=== PATIENT | female | born 1960 | race Caucasian/White ===

== ENCOUNTER → 2016-07-03 | Outpatient (CLI) | payer OTHER ==
[~2016-07-03] MED LIST: BSP10T PO; CTLP20T PO; HYDR1TAB PO; LISI1TAB6 PO
--- OUTSIDE RECORDS SUMMARY | 2016-07-03 13:08 | XMS REPORT ---
Author Author ESVIN SAUER [facility] e[employer] Address Unknown Phone Unavailable Care Team Providers Care Patient Ombudsperson Name Role Phone ESVIN SAUER CP Unavailable Allergies No Known Allergies Problems Problem Type Condition ICD-9 Code Onset Dates Condition Status Problem Migraine, unspecified without mention of intractable migraine without mention of status migrainosus 346.90 Active Problem Other, multiple, and unspecified sites, insect bite, nonvenomous, without mention of infection 919.4 Active Problem Hypopotassemia 276.8 Active Problem Routine adult health maintenance V70.0 Active Problem Posttraumatic stress disorder 309.81 Active Problem Post traumatic stress disorder 309.81 Active Problem Unspecified otitis media 382.9 Active Problem Acute bronchitis 466.0 Active Problem 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 Problem Contact dermatitis and other eczema, due to unspecified cause 692.9 Active Problem Lumbago 724.2 Active Problem Acute upper respiratory infections of unspecified site 465.9 Active Problem Unspecified otalgia 388.70 Active Problem Unspecified infective otitis externa 380.10 Active Problem Generalized anxiety disorder 300.02 Active Problem Unspecified tinnitus 388.30 Active Problem Major depressive disorder, recurrent episode, moderate 296.32 Active Problem Calculus of gallbladder with acute cholecystitis, without mention of obstruction 574.00 Active Medications Medication Code System Code Instructions Start Date End Date Status Dosage Potassium Chloride [facility] [address]-26 10 MEQ July 27, 2014 3 Tablets by Oral route 4 times per day Repository med Results No Known Results Summary Purpose eClinicalWorks Submission
--- NOTE | 2016-07-05 19:06 | Diagnostic Imaging Report ---
EXAMINATION: Bilateral digital screening mammogram with CAD. The current study was also evaluated with a Computer Aided Detection (CAD) system. INDICATION: Screening. No current complaints stated on the questionnaire. COMPARISON: None. This is a baseline study. FINDINGS: Breasts are composed of scattered fibroglandular densities. There are scattered benign-appearing calcifications. There is no mass, architectural distortion or suspicious cluster of calcification. IMPRESSION: No mammographic evidence of malignancy. Annual screening mammograms recommended. ACR BI-RADS Category 2: Benign findings. Result letter will be mailed to the patient. Note: At least 10% of breast cancer is not imaged by mammography. Dictated by: Dictated on workstation # [id number]
== END ==
LOC: RAD 13:00
PROVIDERS: ATTEND Nurse Practitioner Community Health
DX: Z12.31 Encounter for screening mammogram for malignant neoplasm of breast (principal)
CPT/HCPCS: 77067

== ENCOUNTER → 2017-09-30 | Outpatient (CLI) | payer MEDICARE, MEDICAID ==
--- NOTE | 2017-09-30 15:52 | Diagnostic Imaging Report ---
EXAMINATION: Abdominal ultrasound Doppler. INDICATION: Hypertension. FINDINGS: Spectral and color flow imaging of the renal arteries and aorta was performed. There are no prior abdominal Doppler studies available for comparison. Both kidneys are identified. The right kidney measures 11.8 x 5.3 x 4.9 cm while the left kidney is estimated to be 13.5 x 6.1 x 5.5 cm. There is no evidence for a solid renal mass or for hydronephrosis of either kidney. The renal cortices are normal in thickness and echogenicity. There is no shadowing from the kidneys to suggest nephrolithiasis. Both renal arteries are identified. The renal artery/aortic ratios are within normal limits as are the arcuate resistive indices. There is no evidence for a hemodynamically significant stenosis of either renal artery. The bladder was imaged during the course of the exam. The bladder is only partially filled and consequently not well evaluated. There is no obvious bladder abnormality evident. The left ureteral jet was noted, but the right ureteral jet could not be visualized. IMPRESSION: 1. There is no evidence for a solid renal mass or for an acute abnormality of either kidney. 2. There is no sign of renal artery stenosis. 3. The urinary bladder is grossly unremarkable. Dictated by: Dictated on workstation # [id number]
== END ==
LOC: RAD 09:34
PROVIDERS: ATTEND Internal Medicine Nephrology
DX: I10 Essential (primary) hypertension (principal); E87.6 Hypokalemia; Z79.1 Long term (current) use of non-steroidal anti-inflammatories (NSAID)
CPT/HCPCS: 93975

== ENCOUNTER 2018-03-26 12:51 | Emergency (ER) | payer OTHER, MEDICARE ==
[~2018-03-26] VITALS: Ht 157.5 cm; Wt 114.3 kg
[2018-03-26] MEDS ORDERED: TETANUS,DIPTH,PERTUSS P/F (BOOSTRIX) 0.5 ML VIAL IM STA (13:04)
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
--- NOTE | 2018-03-26 13:55 | Diagnostic Imaging Report ---
INDICATION: Fall with pain in the right knee. TIME OF EXAMINATION: 1:51 PM. FINDINGS: The alignment is normal. The articular surfaces are smooth. There is spurring of the tibial spines. Patellofemoral degenerative change is seen. No fracture, dislocation, or effusion is detected. IMPRESSION: Degenerative changes. No acute bony abnormality is detected. Dictated by: Dictated on workstation # [id number]
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
[2018-03-26 14:44] VITALS: BP 136/92
== END 2018-03-26 14:57 | disposition home or self-care (01) ==
LOC: EDUNIT# 12:51 → ER 12:52
DX: S09.90XA Unspecified injury of head, initial encounter (principal); S46.912A Strain of unspecified muscle, fascia and tendon at shoulder and upper arm level, left arm, initial encounter; S63.502A Unspecified sprain of left wrist, initial encounter; S80.01XA Contusion of right knee, initial encounter; E66.9 Obesity, unspecified; F32.9 Major depressive disorder, single episode, unspecified; R40.2142 Coma scale, eyes open, spontaneous, at arrival to emergency department; R40.2252 Coma scale, best verbal response, oriented, at arrival to emergency department; R40.2362 Coma scale, best motor response, obeys commands, at arrival to emergency department; Z82.49 Family history of ischemic heart disease and other diseases of the circulatory system; Z23 Encounter for immunization; V48.5XXA Car driver injured in noncollision transport accident in traffic accident, initial encounter
CPT/HCPCS: 70450; 72125; 73030; 73110; 73130; 73562; 90471; 90715

== ENCOUNTER → 2020-08-17 | Outpatient (CLI) | payer MEDICARE, OTHER ==
--- NOTE | 2020-08-19 09:02 | Diagnostic Imaging Report ---
EXAM: Digital mammogram bilateral screening This study was compared to the prior exam of 07/03/2016. At this time there are no current complaints. The current study was also evaluated with a Computer Aided Detection (CAD) system. FINDINGS: There is a mild amount of fibroglandular tissue present in both breasts, similar to the prior exam. No primary or secondary sign of malignancy is noted. IMPRESSION: 1. There is no radiographic evidence for malignancy. 2. The patient should have her annual bilateral screening mammogram on schedule in July of 2021. ACR category 1 ACR BI-RADS Category 1: Negative. Result letter will be mailed to the patient. Note: At least 10% of breast cancer is not imaged by mammography. Dictated on workstation # [id number]
== END ==
LOC: RAD 14:31
PROVIDERS: ATTEND Nurse Practitioner Family
DX: Z12.31 Encounter for screening mammogram for malignant neoplasm of breast (principal)
CPT/HCPCS: 77063; 77067

== ENCOUNTER 2020-08-22 05:35 | Outpatient (CLI) | payer MEDICARE ==
[~2020-08-22] VITALS: Ht 157.5 cm; Wt 124.9 kg
[2020-08-22] MEDS ORDERED: LISI40TA9 PO (15:53)
[2020-08-22] MEDS ORDERED: ATOR80TA76 PO (15:53)
[2020-08-22] MEDS ORDERED: AMLO-251 PO (15:53)
[2020-08-22] MEDS ORDERED: MTP100TCR PO (15:53)
[2020-08-22] MEDS ORDERED: CYCL10TA9 PO (15:58)
[2020-08-22] MEDS ORDERED: SUMA20SP NS (15:58)
== END 2020-08-22 16:16 | disposition home or self-care (01) ==
LOC: PREOP 05:35
PROVIDERS: ATTEND Surgery
DX: Z01.818 Encounter for other preprocedural examination (principal)

== ENCOUNTER 2020-08-29 08:51 | Day surgery (SDC) | payer MEDICARE ==
[~2020-08-29] VITALS: Ht 157.5 cm; Wt 124.9 kg
[~2020-08-29 08:51] MED LIST changes: +AMLO-251 PO; +ATOR80TA76 PO; +CYCL10TA9 PO; +LACTATED RINGERS 1,000 ML IV ONE; +LISI40TA9 PO; +MTP100TCR PO; +SUMA20SP NS
[2020-08-29] MEDS ORDERED: LACTATED RINGERS 1,000 ML IV STA (09:03)
[2020-08-29 09:13] VITALS: BP 121/77
--- NOTE | 2020-08-29 10:02 | Progress Note-Pre Operative ---
Pre-Operative Progress Note H&P Reviewed The H&P was reviewed, patient examined and no changes noted. Time Seen by Provider: 10:00 Date H&P Reviewed: Aug 29, 2020 Time H&P Reviewed: 10:00 Pre-Operative Diagnosis: DANNY Woods DO Aug 29, 2020 10:02
[2020-08-29] MEDS ORDERED: PROPOFOL INJECTION 50 ML IV ONE (10:16)
[2020-08-29] MEDS ORDERED: MIDAZOLAM 2 MG/2 ML (VERSED) VIAL ONE (10:16)
--- NOTE | 2020-08-29 10:51 | Progress Note-Post Operative ---
Post-Operative Progess Note Surgeon (s)/Geospatial Image Analyst (s) Surgeon DANNY JENKINS DO Geospatial Image Analyst: [id number] Nix Pre-Operative Diagnosis Screening Post-Operative Diagnosis Polyp int hemorrhoids poor prep Procedure & Operative Findings Date of Procedure 08/29/20 Procedure Performed/Findings colon with snare Anesthesia Type IV sedation by METEOROLOGICAL AIDE Estimated Blood Loss Estimated blood loss (mL): scant Specimens/Packing Specimens Removed rectal polyp DANNY JENKINS DO Aug 29, 2020 10:51
[2020-08-29 10:52] VITALS: BP 117/58
--- NOTE | 2020-08-29 10:52 | Endoscopy Discharge Instruct ---
Endo Procedure/Findings Findings 1.: Polyp 2.: Internal Hemorrhoids 3.: Other Findings (poor prep) Discharge Instructions - Activity: You might feel a little sleepy until tomorrow. This is due to the medicine you received to relax you. Until tomorrow, you should: NOT drive a car, operate machinery or power tools. NOT drink any alcoholic beverages. NOT make any important decisions or sign importortant papers. Do not return to work until tomorrow, unless otherwise instructed. Resume previous activities tomorrow. Diet: Start by taking liquids. If you tolerate liquids, advance to solid food. 1.: Colonoscopy in 1 year Notify Physician - If you experience excessive bleeding, unusual abdominal pain, fever, or chest pain, contact your doctor immediately. DANNY JENKINS DO Aug 29, 2020 10:52
[2020-08-29 10:57] VITALS: BP 135/72
[2020-08-29 11:00] VITALS: BP 135/72
[2020-08-29 11:20] VITALS: BP 131/76
[2020-08-29 11:22] VITALS: BP 131/76
--- NOTE | 2020-08-29 12:53 | Anesthesia-General Post-Op ---
MAC Patient Condition Mental Status/LOC: Same as Preop Cardiovascular: Satisfactory Nausea/Vomiting: Absent Respiratory: Satisfactory Pain: Controlled Complications: Absent Post Op Complications Complications None Follow Up Care/Instructions Patient Instructions None needed. Anesthesiology Discharge Order Discharge Order Patient is doing well, no complaints, stable vital signs, no apparent adverse anesthesia problems. No complications reported per nursing. CINDY DUNAWAY CRNA Aug 29, 2020 12:53
--- NOTE | 2020-08-29 22:08 | OPERATIVE REPORT ---
DATE OF SERVICE: PREOPERATIVE DIAGNOSIS: Screening colonoscopy. POSTOPERATIVE DIAGNOSIS: Polyp, internal hemorrhoids, poor prep. PROCEDURE: Colonoscopy with snare polypectomy. SURGEON: Gabriel Russell DO SHOE PATTERNMAKER: Leon Thornton, MS3. ANESTHESIA: IV sedation by the CONTRACT FORESTER. SPECIMEN: Rectal polyp. BLOOD LOSS: Scant. FLUIDS: Per anesthesia. POSTOPERATIVE CONDITION: Stable. INDICATION FOR PROCEDURE: The patient is a 59-year-old female who has never had a colonoscopy and needs one for screening. FINDINGS: The patient had a rectal polyp, but she also had a very poor prep and she had some internal hemorrhoids. PROCEDURE NOTE: After informed consent was obtained, the patient was brought to the endoscopy suite, placed in bed in left lateral decubitus position. She was administered IV sedation by the CONTRACT FORESTER who then monitored her vitals the entire time, heart rate, blood pressure and pulse ox and the scope was inserted. Me upon entering, noted a lot of retained fecal material. In the rectum, saw a polyp, did a snare polypectomy of this and then continued up, pushed past fecal material, took pictures, able to get into the ascending colon, but again all throughout here, the meyer were covered with fecal material, unable to get all of it flushed off and then able to suction up because of retained fecal material plugging up the scope. So, at this point, then removed the scope insufflating to look circumferentially at the meyer at the ascending colon, hepatic flexure, transverse colon, splenic flexure, descending colon, sigmoid and rectum. Again, throughout here, could not really clear all the meyer, did not see any large thing, we could definitely miss small polyps into the rectal vault and pulled the scope out and as we were pulling the scope out, took a picture of some internal hemorrhoids. The patient tolerated the procedure. She was recovered in endoscopy suite. Job ID: [id number] DocumentID: [id number] Dictated Date: 08/29/2020 15:39:44 Plug Sorter Date: 08/29/2020 22:08:01 Dictated By: GABRIEL RUSSELL DO
== END 2020-08-29 11:24 | disposition home or self-care (01) ==
LOC: ENDO 08:51
PROVIDERS: ATTEND Surgery
DX: Z12.11 Encounter for screening for malignant neoplasm of colon (principal); K63.5 Polyp of colon; K64.8 Other hemorrhoids; I10 Essential (primary) hypertension; G47.33 Obstructive sleep apnea (adult) (pediatric); F32.9 Major depressive disorder, single episode, unspecified; E66.01 Morbid (severe) obesity due to excess calories; Z68.43 Body mass index [BMI] 50.0-59.9, adult; Z79.899 Other long term (current) drug therapy